=== PATIENT | female | born 1955 | race Caucasian/White ===

== ENCOUNTER → 2020-10-15 | Outpatient (CLI) | payer MEDICARE, OTHER | LOC: KOH-I 14:14 | DX: M75.102 Unspecified rotator cuff tear or rupture of left shoulder, not specified as traumatic (principal); S46.912A Strain of unspecified muscle, fascia and tendon at shoulder and upper arm level, left arm, initial encounter | CPT/HCPCS: 73221 ==

== ENCOUNTER → 2021-01-08 | Outpatient (CLI) | payer MEDICARE ==
[~2021-01-08] MED LIST: ALLEGRA ALLERG180 MG PO; AZELASTINE137 MCG/0.; ENALAPRIL MALEA20 MG PO; ENDOCET 7.5-321 EACH PO; FISH OIL PEARL1 EAC1 PO; FLONASE 0.05% N16 GM; FLUTICASONE; HYDROCHLOROTH12.5 MG PO; LIPITOR10 MG PO; NAPROXEN500 MG PO; NORVASC5 MG PO; OMEPRAZOLE20 M1 PO; VITAMIN B12; VITAMIN B6; VITAMIN D; ZOFRAN4 MG PO; ZOLOFT50 MG PO
[2021-01-08 10:26] LABS: HEMOGLOBIN 12.9 gm/dl (12.3-15.3); RED BLOOD COUNT 4.4 M/UL (4.00-5.10); WHITE BLOOD COUNT 9.9 K/UL (4.5-11.0)
[2021-01-08 10:55] LABS: BUN/CREATININE RATIO 29 (0-10)
== END ==
LOC: EDSTATUS 09:00 → OPSV2 09:00
PROVIDERS: Orthopaedic Surgery
DX: Z01.818 Encounter for other preprocedural examination (principal); M75.102 Unspecified rotator cuff tear or rupture of left shoulder, not specified as traumatic
CPT/HCPCS: 36415; 71046; 80048; 85025; 93005

== ENCOUNTER → 2021-01-22 | Day surgery (SDC) | payer MEDICARE ==
[~2021-01-22] VITALS: Ht 167.6 cm; Wt 80.3 kg
== END | disposition home or self-care (01) ==
LOC: OR 05:27
DX: M19.012 Primary osteoarthritis, left shoulder (principal); M75.102 Unspecified rotator cuff tear or rupture of left shoulder, not specified as traumatic; I10 Essential (primary) hypertension; E78.5 Hyperlipidemia, unspecified; K21.9 Gastro-esophageal reflux disease without esophagitis; J98.11 Atelectasis; Z20.822 Contact with and (suspected) exposure to COVID-19; Z85.3 Personal history of malignant neoplasm of breast
CPT/HCPCS: 73020; 97161; 97166; C1713; C1776; J0690; J1100; J1200; J1885; J2001; J2370; J2405; J2704; J2710; J2795; J3370; J3475; J7120

== ENCOUNTER 2021-06-20 12:32 | Emergency (ER) | payer MEDICARE, OTHER ==
[2021-06-20] MEDS ORDERED: CEPHALEXIN500 M1 PO (14:15)
== END 2021-06-20 14:22 | disposition home or self-care (01) ==
LOC: ER1 12:32
DX: S62.640A Nondisplaced fracture of proximal phalanx of right index finger, initial encounter for closed fracture (principal); S62.642A Nondisplaced fracture of proximal phalanx of right middle finger, initial encounter for closed fracture; S61.210A Laceration without foreign body of right index finger without damage to nail, initial encounter; I10 Essential (primary) hypertension; W23.1XXA Caught, crushed, jammed, or pinched between stationary objects, initial encounter
CPT/HCPCS: 12002; 73140; 99283

== ENCOUNTER → 2021-07-02 | Outpatient (CLI) | payer MEDICARE ==
[~2021-07-02] MED LIST changes: +CEPHALEXIN500 M1 PO
== END ==
LOC: KOH-I 09:13
DX: T84.038A Mechanical loosening of other internal prosthetic joint, initial encounter (principal); S42.122A Displaced fracture of acromial process, left shoulder, initial encounter for closed fracture
CPT/HCPCS: 73200

== ENCOUNTER → 2021-09-01 | Outpatient (CLI) | payer MEDICARE, OTHER ==
[~2021-09-01] MED LIST changes: +ASPIRIN EC81 MG PO; +COLACE100 MG PO; +CYCLOBENZAPRINE10 MG PO; +FISH OIL 1,0001 EACH PO; +FISH OIL 1,2001 EACH PO; +MULTI-VITAMIN1 EACH PO; +ROXICODONE15 MG PO; +VITAMIN B-121000 MCG PO; -VITAMIN B6; +VITAMIN B6 PO; -VITAMIN D; +VITAMIN D 3; +ZOFRAN 4 MG TAB4 MG PO
[2021-09-01 10:52] LABS: HEMOGLOBIN 13.2 gm/dl (12.3-15.3); RED BLOOD COUNT 4.5 M/UL (4.00-5.10); WHITE BLOOD COUNT 6.6 K/UL (4.5-11.0)
[2021-09-01 11:10] LABS: BUN/CREATININE RATIO 22 (0-10)
== END ==
LOC: OPSV2 09:00
PROVIDERS: Orthopaedic Surgery
DX: Z01.818 Encounter for other preprocedural examination (principal); S42.122 Displaced fracture of acromial process, left shoulder; R94.31 Abnormal electrocardiogram [ECG] [EKG]
CPT/HCPCS: 36415; 80048; 85027; 93005

== ENCOUNTER 2021-09-03 07:25 | Day surgery (SDC) | payer MEDICARE, OTHER ==
[~2021-09-03] VITALS: Ht 167.6 cm; Wt 81.6 kg
[~2021-09-03 07:25] MED LIST changes: -ASPIRIN EC81 MG PO; -CYCLOBENZAPRINE10 MG PO; -FISH OIL 1,0001 EACH PO; -ROXICODONE15 MG PO; -VITAMIN B-121000 MCG PO; -ZOFRAN 4 MG TAB4 MG PO
[2021-09-03] MEDS ORDERED: ZOFRAN 4 MG TAB4 MG PO (10:35)
[2021-09-03] MEDS ORDERED: CYCLOBENZAPRINE10 MG PO (10:35)
[2021-09-03] MEDS ORDERED: ASPIRIN EC81 MG PO (10:35)
[2021-09-03] MEDS ORDERED: ROXICODONE15 MG PO (10:35)
[2021-09-03] MEDS ORDERED: NAPROXEN500 MG PO (18:53)
[2021-09-03] MEDS ORDERED: VITAMIN B-121000 MCG PO (18:56)
[2021-09-03] MEDS ORDERED: FISH OIL 1,0001 EACH PO (18:56)
== END 2021-09-04 13:33 | disposition home or self-care (01) ==
LOC: OR 07:25 → CCU 16:33 → OR 09-04 13:33
DX: S42.122A Displaced fracture of acromial process, left shoulder, initial encounter for closed fracture (principal); I10 Essential (primary) hypertension; E78.5 Hyperlipidemia, unspecified; K21.9 Gastro-esophageal reflux disease without esophagitis; Z85.3 Personal history of malignant neoplasm of breast; X58.XXXA Exposure to other specified factors, initial encounter
CPT/HCPCS: 73020; 73030; 76000; C1713; J0690; J1100; J1885; J2001; J2250; J2270; J2370; J2405; J2704; J2795; J3010